=== PATIENT | male | born 1985 | race African-American/Black ===

== ENCOUNTER 2016-12-26 08:12 | Emergency (ER) | payer OTHER ==
[~2016-12-26] VITALS: Ht 175.3 cm; Wt 63.5 kg
[2016-12-26 08:12] VITALS: BP 128/70
[~2016-12-26 08:12] MED LIST: COLACE 100 MG100 MG PO; LORTAB PO; [UNRECOGNIZED DRUG - REMARK]
== END 2016-12-26 09:28 | disposition home or self-care (01) ==
LOC: ER 08:12
DX: J45.909 Unspecified asthma, uncomplicated (principal); F15.10 Other stimulant abuse, uncomplicated

== ENCOUNTER 2020-12-21 13:15 | Emergency (ER) | payer OTHER ==
[~2020-12-21] VITALS: Ht 175.3 cm; Wt 63.5 kg
[2020-12-21 14:04] LABS: URINE BLOOD NEGATIVE (Negative); URINE CLARITY CLEAR; URINE COLOR YELLOW; URINE GLUCOSE-RANDOM* NEGATIVE (Negative); URINE KETONES 1+ (Negative); URINE NITRITE-REFLEX NEGATIVE (Negative); URINE PROTEIN (DIPSTICK) NEGATIVE (Negative); URINE SPECIFIC GRAVITY >= 1.030 (1.005-1.035)
[2020-12-21 14:07] LABS: URINE LEUKOCYTES-REFLEX 1+ (Negative)
[2020-12-21 14:08] LABS: ICTOTEST (BILI CONFIRMATORY) Negative (Negative); URINE BILIRUBIN NEGATIVE (Negative)
[2020-12-21] MEDS ORDERED: DOXYCYCLINE 10100 MG PO (14:14)
[2020-12-21 14:17] LABS: MUCUS >6 Heavy strn/LPF (None Seen); URINE WBC-REFLEX >25 Many /HPF (0-5)
[2020-12-21 14:18] LABS: SQUAMOUS 0-3 Few /LPF (0-3); URINE RBC 1-2 Rare /HPF (NONE SEEN)
[2020-12-21 14:19] LABS: CASTS None Seen /LPF (None Seen); CRYSTALS None Seen /LPF (None Seen)
[2020-12-21] MEDS ORDERED: FLAGYL500 M1 PO (14:24)
[2020-12-21 15:09] VITALS: BP 113/80
== END 2020-12-21 15:09 | disposition home or self-care (01) ==
LOC: ER 13:15
PROVIDERS: Physician Assistant
DX: R36.9 Urethral discharge, unspecified (principal); Z20.2 Contact with and (suspected) exposure to infections with a predominantly sexual mode of transmission; J45.909 Unspecified asthma, uncomplicated

== ENCOUNTER 2021-05-14 17:07 | Emergency (ER) | payer OTHER ==
[~2021-05-14] VITALS: Ht 175.3 cm; Wt 65.8 kg
[~2021-05-14 17:07] MED LIST changes: +DOXYCYCLINE 10100 MG PO; +FLAGYL500 M1 PO
[2021-05-14] MEDS ORDERED: NORCO7.5 PO (19:49)
[2021-05-14 20:00] VITALS: BP 111/91
== END 2021-05-14 20:03 | disposition home or self-care (01) ==
LOC: ER 17:07
DX: S43.102A Unspecified dislocation of left acromioclavicular joint, initial encounter (principal); J45.909 Unspecified asthma, uncomplicated; F12.90 Cannabis use, unspecified, uncomplicated; X50.9XXA Other and unspecified overexertion or strenuous movements or postures, initial encounter; Y93.89 Activity, other specified; Y92.89 Other specified places as the place of occurrence of the external cause; Y99.8 Other external cause status